=== PATIENT | male | born 1965 | race African-American/Black ===

== ENCOUNTER 2019-11-17 14:10 | Inpatient (IN) ==
[2019-11-17] MEDS ORDERED: DEXTROSE 10% 250 ML BAG IV PRN (16:17)
[2019-11-17] MEDS ORDERED: GLUCAGON 1 MG VIAL IM PRN (16:17)
[2019-11-17 17:29] LABS: Basophils % 0.3 % (0.0-0.8); Eosinophils % 0.2 % (0.00-10.9); Hematocrit 31.3 VOL% (42.0-52.0); Hemoglobin 9.5 GM/DL (14.0-18.0); Immature Granulocytes % 0.4 %; Immature Granulocytes Absolute 0.05 #; Lymphocytes # 0.6 10*3/uL (1.4-4.0); Lymphocytes % 5.3 % (21.2-54.2); Mean Corpuscular HGB Conc 30.4 GM/DL (32-36); Mean Corpuscular Volume 85.8 FL (87-102); Mean Platelet Volume 8.7 FL (9.6-12.0); Monocytes % 8.4 % (1.7-12.7); Neutrophils % 85.4 % (38.7-73.9); Platelet Count 413 T/CUMM (130-400); Red Blood Count 3.65 MC/CUMM (3.8-5.5); Red Cell Distribution Width 14.6 % (9.3-17.3); White Blood Count 11.5 T/CUMM (4-12)
[2019-11-17 17:36] LABS: Alanine Aminotransferase 25 U/L (16-61); Albumin 3.3 G/DL (3.4-5.0); Alkaline Phosphatase 547 U/L (45-117); Aspartate Amino Transferase 47 U/L (0-37); Bilirubin,Total < 0.39 MG/DL (0.2-1.0); Blood Urea Nitrogen 13 MG/DL (7-18); Calcium 9.8 MG/DL (8.5-10.1); Estimated Glom Filtration Rate 119 ML/MIN; Glucose 88 MG/DL (74-106); Osmolality,Calculated 277.4 MOS/KG (273-304); Total Protein 7.6 G/DL (6.4-8.3)
[2019-11-17 19:13] LABS: Apearance,Urine CLEAR (Clear); Bilirubin,Urine Negative (Negative); Blood, Urine Negative (Negative); Glucose,Urine (UA) Negative (Negative); Ketones,Urine Negative (Negative); Mucus,Urine Occasional /LPF (Occasional); Nitrite,Urine Negative (Negative); Protein,Urine Negative; RBC,Urine <1 /HPF (0-4); Urine Color Yellow (Yellow); Urine Specific Gravity 1.008 (1.001-1.035); Urine Urobilinogen < 2.0 EU/DL (0.2-1.0); WBC,Urine 1 /HPF (0-6)
[2019-11-17] MEDS: PANTOPRAZOLE 40 MG TABLET PO SCH (21:18)
[2019-11-18] MEDS ORDERED: DEXAMETHASONE 10 MG/1 ML VIAL IV ONE (08:59)
[2019-11-18] MEDS ORDERED: DEXAMETHASONE 4 MG TABLET PO SCH (09:00)
[2019-11-18] MEDS ORDERED: METOPROLOL SUCCINATE XL 25 MG TABLET PO SCH (09:00)
[2019-11-18] MEDS: allopurinoL 100 MG TABLET PO SCH (09:41)
[2019-11-18] MEDS: LOSARTAN 50 MG TABLET PO SCH (09:42)
[2019-11-18] MEDS: hydroCHLOROthiazide 12.5 MG CAPSULE PO SCH (09:42)
[2019-11-18] MEDS: PANTOPRAZOLE 40 MG TABLET PO SCH ×2 (09:42→22:24)
[2019-11-18] MEDS: FONDAPARINUX 2.5 MG/0.5 ML SYRINGE SUBCUT SCH (09:42)
[2019-11-18] MEDS: BICALUTAMIDE 50 MG TABLET PO SCH (09:42)
[2019-11-18] MEDS: DEXAMETHASONE 4 MG TABLET PO SCH ×2 (15:22→22:23)
[2019-11-18] MEDS: METOPROLOL SUCCINATE XL 25 MG TABLET PO SCH (22:24)
[2019-11-19 03:35] LABS: Basophils % 0.1 % (0.0-0.8); Hematocrit 30.9 VOL% (42.0-52.0); Hemoglobin 9.3 GM/DL (14.0-18.0); Immature Granulocytes % 0.8 %; Immature Granulocytes Absolute 0.08 #; Lymphocytes # 0.6 10*3/uL (1.4-4.0); Lymphocytes % 5.7 % (21.2-54.2); Mean Corpuscular HGB Conc 30.1 GM/DL (32-36); Mean Corpuscular Volume 84.9 FL (87-102); Mean Platelet Volume 8.8 FL (9.6-12.0); Monocytes % 4.3 % (1.7-12.7); Neutrophils % 89.1 % (38.7-73.9); Platelet Count 419 T/CUMM (130-400); Red Blood Count 3.64 MC/CUMM (3.8-5.5); Red Cell Distribution Width 14.6 % (9.3-17.3); White Blood Count 10.2 T/CUMM (4-12)
[2019-11-19 04:02] LABS: Albumin 2.9 G/DL (3.4-5.0); Bilirubin,Total 0.6 MG/DL (0.2-1.0); Calcium 9.6 MG/DL (8.5-10.1); Osmolality,Calculated 268.4 MOS/KG (273-304); Total Protein 7.4 G/DL (6.4-8.3)
[2019-11-19] MEDS: DEXAMETHASONE 10 MG/1 ML VIAL IV SCH ×2 (09:58→20:19)
[2019-11-19] MEDS: FONDAPARINUX 2.5 MG/0.5 ML SYRINGE SUBCUT SCH (09:58)
[2019-11-19] MEDS: PANTOPRAZOLE 40 MG TABLET PO SCH ×2 (09:59→20:19)
[2019-11-19] MEDS: METOPROLOL SUCCINATE XL 25 MG TABLET PO SCH ×2 (09:59→20:19)
[2019-11-19] MEDS: LOSARTAN 50 MG TABLET PO SCH (09:59)
[2019-11-19] MEDS: BICALUTAMIDE 50 MG TABLET PO SCH (09:59)
[2019-11-19] MEDS: hydroCHLOROthiazide 12.5 MG CAPSULE PO SCH (09:59)
[2019-11-19] MEDS: allopurinoL 100 MG TABLET PO SCH (09:59)
[2019-11-19] MEDS ORDERED: ONDANSETRON 4 MG/2 ML VIAL IV PRN (14:55)
[2019-11-19] MEDS ORDERED: chlorproMAZINE 25 MG TABLET PO PRN (16:30)
[2019-11-19] MEDS ORDERED: chlorproMAZINE INJ 50 MG in SODIUM CHLORIDE 0.9% 100 ML IV PRN (16:30)
[2019-11-19] MEDS ORDERED: ALUMINUM/MAGNES/SIMETH MAX STR 30 ML UDCUP PO PRN (16:30)
[2019-11-19] MEDS ORDERED: PROMETHAZINE INJ 25 MG in SODIUM CHLORIDE 0.9% 50 ML IV PRN (16:30)
[2019-11-19] MEDS ORDERED: LACTULOSE 20 GM/30 ML UDCUP PO PRN (16:30)
[2019-11-19] MEDS ORDERED: TEMAZEPAM 7.5 MG CAPSULE PO PRN (16:30)
[2019-11-19] MEDS ORDERED: MAGNESIUM HYDROXIDE SUSP 30 ML UDCUP PO PRN (16:30)
[2019-11-19] MEDS ORDERED: ACETAMINOPHEN 325 MG TABLET PO PRN (16:30)
[2019-11-19] MEDS ORDERED: BENZTROPINE 2 MG/2 ML AMP IV PRN (16:30)
[2019-11-19] MEDS ORDERED: LOPERAMIDE 2 MG CAPSULE PO PRN ×2 (16:30)
[2019-11-19] MEDS ORDERED: guaiFENesin 200 MG/10 ML UDCUP PO PRN (16:30)
[2019-11-19] MEDS ORDERED: MYLANTA/LIDO VISC 2:1 300 ML BOTTLE SWISH/SPIT PRN (16:30)
[2019-11-19] MEDS ORDERED: ALPRAZolam 0.25 MG TABLET PO PRN (16:30)
[2019-11-19] MEDS ORDERED: traMADol 50 MG TABLET PO PRN (16:30)
[2019-11-19] MEDS ORDERED: diphenhydrAMINE CAP 25 MG CAPSULE PO PRN (16:30)
[2019-11-19] MEDS ORDERED: chlorproMAZINE INJ 25 MG in SODIUM CHLORIDE 0.9% 100 ML IV PRN (16:30)
[2019-11-19] MEDS ORDERED: MYLANTA/LIDO VISC 2:1 300 ML BOTTLE SWISH/SWAL PRN (16:30)
[2019-11-20] MEDS: FONDAPARINUX 2.5 MG/0.5 ML SYRINGE SUBCUT SCH (08:13)
[2019-11-20] MEDS: allopurinoL 100 MG TABLET PO SCH (08:13)
[2019-11-20] MEDS: LOSARTAN 50 MG TABLET PO SCH (08:13)
[2019-11-20] MEDS: METOPROLOL SUCCINATE XL 25 MG TABLET PO SCH ×2 (08:13→20:45)
[2019-11-20] MEDS: BICALUTAMIDE 50 MG TABLET PO SCH (08:14)
[2019-11-20] MEDS: hydroCHLOROthiazide 12.5 MG CAPSULE PO SCH (08:14)
[2019-11-20] MEDS: PANTOPRAZOLE 40 MG TABLET PO SCH ×2 (08:15→20:45)
[2019-11-20] MEDS: DEXAMETHASONE 10 MG/1 ML VIAL IV SCH ×2 (08:15→20:45)
[2019-11-20 08:31] LABS: Basophils % 0.1 % (0.0-0.8); Eosinophils % 0.1 % (0.00-10.9); Hematocrit 34.1 VOL% (42.0-52.0); Hemoglobin 10.1 GM/DL (14.0-18.0); Immature Granulocytes % 0.9 %; Immature Granulocytes Absolute 0.13 #; Lymphocytes # 0.6 10*3/uL (1.4-4.0); Mean Corpuscular HGB Conc 29.6 GM/DL (32-36); Mean Corpuscular Volume 85.3 FL (87-102); Mean Platelet Volume 9.3 FL (9.6-12.0); Monocytes % 4.9 % (1.7-12.7); NRBC # 0.02 10*3/uL; Platelet Count 549 T/CUMM (130-400); Red Cell Distribution Width 14.7 % (9.3-17.3); White Blood Count 14.1 T/CUMM (4-12)
[2019-11-20 09:01] LABS: Alanine Aminotransferase 28 U/L (16-61); Albumin 3.1 G/DL (3.4-5.0); Alkaline Phosphatase 467 U/L (45-117); Aspartate Amino Transferase 30 U/L (0-37); Bilirubin,Total < 0.39 MG/DL (0.2-1.0); Blood Urea Nitrogen 28 MG/DL (7-18); Calcium 9.6 MG/DL (8.5-10.1); Estimated Glom Filtration Rate 79 ML/MIN; Glucose 156 MG/DL (74-106); Hypochromasia 1+; Lymphocytes 5 % (20-55); Microcytosis Slight; Osmolality,Calculated 276.2 MOS/KG (273-304); Platelet Estimate Adequate; Segmented Neutrophils 93 % (50-85); Total Cells Counted 100
[2019-11-21 05:36] LABS: Basophils % 0.1 % (0.0-0.8); Hematocrit 30.8 VOL% (42.0-52.0); Hemoglobin 9.2 GM/DL (14.0-18.0); Lymphocytes # 0.3 10*3/uL (1.4-4.0); Lymphocytes % 3.2 % (21.2-54.2); Mean Corpuscular HGB Conc 29.9 GM/DL (32-36); Mean Corpuscular Volume 84.4 FL (87-102); Mean Platelet Volume 9.2 FL (9.6-12.0); Monocytes % 3.4 % (1.7-12.7); Neutrophils % 92.3 % (38.7-73.9); Platelet Count 534 T/CUMM (130-400); Red Blood Count 3.65 MC/CUMM (3.8-5.5); Red Cell Distribution Width 14.6 % (9.3-17.3); White Blood Count 10.2 T/CUMM (4-12)
[2019-11-21 05:58] LABS: Albumin 2.7 G/DL (3.4-5.0); Bilirubin,Total 0.4 MG/DL (0.2-1.0); Calcium 8.9 MG/DL (8.5-10.1); Osmolality,Calculated 275.4 MOS/KG (273-304)
[2019-11-21 06:05] LABS: Lymphocytes 1 % (20-55); Platelet Estimate Adequate; Segmented Neutrophils 94 % (50-85); Total Cells Counted 100
[2019-11-21 06:06] LABS: Hypochromasia 1+; Microcytosis Slight
[2019-11-21] MEDS: METOPROLOL SUCCINATE XL 25 MG TABLET PO SCH ×2 (08:50→20:04)
[2019-11-21] MEDS: BICALUTAMIDE 50 MG TABLET PO SCH (08:50)
[2019-11-21] MEDS: FONDAPARINUX 2.5 MG/0.5 ML SYRINGE SUBCUT SCH (08:51)
[2019-11-21] MEDS: LOSARTAN 50 MG TABLET PO SCH (08:51)
[2019-11-21] MEDS: allopurinoL 100 MG TABLET PO SCH (08:51)
[2019-11-21] MEDS: PANTOPRAZOLE 40 MG TABLET PO SCH ×2 (08:52→20:04)
[2019-11-21] MEDS: DEXAMETHASONE 10 MG/1 ML VIAL IV SCH ×2 (08:52→20:04)
[2019-11-21] MEDS ORDERED: ZOLEDRONIC ACID 4 MG in PREMIX 1 EACH IV ONE (09:00)
[2019-11-21] MEDS: hydroCHLOROthiazide 12.5 MG CAPSULE PO SCH (10:43)
[2019-11-22 06:43] LABS: Basophils % 0.1 % (0.0-0.8); Hematocrit 32.7 VOL% (42.0-52.0); Hemoglobin 10.1 GM/DL (14.0-18.0); Immature Granulocytes % 1.1 %; Lymphocytes # 0.3 10*3/uL (1.4-4.0); Lymphocytes % 2.8 % (21.2-54.2); Mean Corpuscular HGB Conc 30.9 GM/DL (32-36); Mean Corpuscular Volume 81.3 FL (87-102); Mean Platelet Volume 9.4 FL (9.6-12.0); Platelet Count 564 T/CUMM (130-400); Red Blood Count 4.02 MC/CUMM (3.8-5.5); Red Cell Distribution Width 14.3 % (9.3-17.3); White Blood Count 9.4 T/CUMM (4-12)
[2019-11-22 07:32] LABS: Hypochromasia 1+; Lymphocytes 2 % (20-55); Segmented Neutrophils 94 % (50-85); Total Cells Counted 100
[2019-11-22 07:33] LABS: Microcytosis 1+; Ovalocytes Slight; Platelet Estimate Increased
[2019-11-22 08:17] VITALS: BP 148/91
[2019-11-22 08:37] LABS: Alanine Aminotransferase 34 U/L (16-61); Albumin 2.9 G/DL (3.4-5.0); Alkaline Phosphatase 693 U/L (45-117); Aspartate Amino Transferase 49 U/L (0-37); Bilirubin,Total < 0.39 MG/DL (0.2-1.0); Blood Urea Nitrogen 28 MG/DL (7-18); Calcium 9.1 MG/DL (8.5-10.1); Estimated Glom Filtration Rate 96 ML/MIN; Glucose 147 MG/DL (74-106); Osmolality,Calculated 276.2 MOS/KG (273-304); Total Protein 7.3 G/DL (6.4-8.3)
[2019-11-22] MEDS: BICALUTAMIDE 50 MG TABLET PO SCH (08:51)
[2019-11-22] MEDS: LOSARTAN 50 MG TABLET PO SCH (08:51)
[2019-11-22] MEDS: allopurinoL 100 MG TABLET PO SCH (08:52)
[2019-11-22] MEDS: METOPROLOL SUCCINATE XL 25 MG TABLET PO SCH (08:52)
[2019-11-22] MEDS: PANTOPRAZOLE 40 MG TABLET PO SCH (08:52)
[2019-11-22] MEDS: FONDAPARINUX 2.5 MG/0.5 ML SYRINGE SUBCUT SCH (08:53)
[2019-11-22] MEDS: DEXAMETHASONE 10 MG/1 ML VIAL IV SCH (08:53)
[2019-11-22] MEDS: hydroCHLOROthiazide 12.5 MG CAPSULE PO SCH (08:56)
[2019-11-22] MEDS ORDERED: LEUPROLIDE 7.5 MG SUBCUT ONE (09:00)
== END 2019-11-22 12:30 | disposition home health service (06) | DRG 723 ==
LOC: N.4E → EDBD → SUATTDRO 15:08
PROVIDERS: ADMIT Internal Medicine; ATTEND Internal Medicine

== ENCOUNTER 2020-02-11 08:22 | Inpatient (IN) ==
[2020-02-11] MEDS ORDERED: SODIUM CHLORIDE 0.9% 1,000 ML IV PRN ×3 (08:57→17:19)
[2020-02-11 09:05] LABS: Basophils % 0.2 % (0.0-0.8); Eosinophils % 0.1 % (0.00-10.9); Immature Granulocytes Absolute 3.07 #; Lymphocytes # 1.4 10*3/uL (1.4-4.0); Lymphocytes % 5.7 % (21.2-54.2); Mean Corpuscular HGB Conc 26.9 GM/DL (32-36); Mean Corpuscular Volume 99.2 FL (87-102); Mean Platelet Volume 11.1 FL (9.6-12.0); Monocytes % 3.5 % (1.7-12.7); NRBC # 3.19 10*3/uL; Neutrophils % 77.5 % (38.7-73.9); Red Cell Distribution Width 21.1 % (9.3-17.3); White Blood Count 23.7 T/CUMM (4-12)
[2020-02-11 09:13] LABS: Hematocrit 11.9 VOL% (42.0-52.0); Hemoglobin 3.2 GM/DL (14.0-18.0)
[2020-02-11 09:14] LABS: Platelet Count 18 T/CUMM (130-400)
[2020-02-11 09:34] LABS: Alanine Aminotransferase 186 U/L (16-61); Albumin 1.4 G/DL (3.4-5.0); Alkaline Phosphatase 231 U/L (45-117); Aspartate Amino Transferase 185 U/L (0-37); Blood Urea Nitrogen 52 MG/DL (7-18); Calcium 8.5 MG/DL (8.5-10.1); Estimated Glom Filtration Rate 0 ML/MIN; Glucose 154 MG/DL (74-106); Osmolality,Calculated 297.3 MOS/KG (273-304); Total Protein 4.2 G/DL (6.4-8.3); Troponin I 0.235 NG/ML (0.00-0.045)
[2020-02-11 09:39] LABS: Lymphocytes 8 % (20-55); Nucleated Red Blood Cells 8 (0-5); Segmented Neutrophils 85 % (50-85); Total Cells Counted 100
[2020-02-11 09:40] LABS: Elliptocytes Few; Ovalocytes Few; Schistocytes Few
[2020-02-11 09:41] LABS: Hypochromasia 3+; Platelet Estimate Decreased; Polychromasia Slight
[2020-02-11] MEDS ORDERED: VERAPAMIL 5 MG/2 ML VIAL ONE (09:45)
[2020-02-11] MEDS ORDERED: NITROGLYCERIN DRIP 50 MG/250 ML BOTTLE IV ONE (09:45)
[2020-02-11] MEDS ORDERED: HEPARIN/NACL 0.9% 2 UNITS/ML 500 ML IV ONE (10:00)
[2020-02-11] MEDS ORDERED: LORazepam 2 MG/1 ML VIAL ONE (10:41)
[2020-02-11 10:55] LABS: Apearance,Urine CLOUDY (Clear); Bilirubin,Urine Negative (Negative); Blood, Urine Small mg/dL (Negative); Glucose,Urine (UA) 50 mg/dL (Negative); Ketones,Urine Negative (Negative); Mucus,Urine Occasional /LPF (Occasional); Nitrite,Urine Negative (Negative); Protein,Urine Negative; RBC,Urine 1 /HPF (0-4); Squamous Epithelial Cell,Urine Occasional /HPF (0-10); Urine Color Yellow (Yellow); Urine Specific Gravity 1.015 (1.001-1.035); Urine Urobilinogen < 2.0 EU/DL (0.2-1.0); WBC,Urine 10 /HPF (0-6)
[2020-02-11 11:07] LABS: ABG Base Excess -19.8 MMOL/L (-2.5-2.5); ABG HCO3 9.4 MMOL/L (20-26); ABG PCO2 35.2 MM HG (35-48); ABG PO2 522.1 MM HG (80-95); ABG TCO2 10.4 MMOL/L (23-27)
[2020-02-11 11:09] LABS: ABG PH 7.043 (7.35-7.45)
[2020-02-11] MEDS ORDERED: LORazepam INJ 40 MG in DEXTROSE 5% 30 ML IV PRN (11:14)
[2020-02-11] MEDS ORDERED: GLUCAGON 1 MG VIAL IM PRN (11:17)
[2020-02-11] MEDS ORDERED: SODIUM BICARBONATE 50 MEQ/50 ML VIAL IV ONE ×2 (11:17→11:30)
[2020-02-11] MEDS ORDERED: DEXTROSE 50% 25 GM/50 ML VIAL IV PRN (11:17)
[2020-02-11] MEDS ORDERED: ALBUTEROL 2.5 MG/3 ML NEB RESP TX PRN (11:18)
[2020-02-11] MEDS ORDERED: PANTOPRAZOLE INJ 80 MG in SODIUM CHLORIDE 0.9% 100 ML IV ONE (11:30)
[2020-02-11] MEDS ORDERED: fentaNYL 100 MCG/2 ML VIAL IV PRN (11:36)
[2020-02-11] MEDS ORDERED: LORazepam 2 MG/1 ML VIAL IV ONE ×2 (11:40→12:00)
[2020-02-11 11:48] LABS: Basophils # 0.1 10*3/uL (0.0-0.2); Basophils % 0.7 % (0.0-0.8); Eosinophils % 0.1 % (0.00-10.9); Hematocrit 25.7 VOL% (42.0-52.0); Immature Granulocytes % 16.7 %; Immature Granulocytes Absolute 2.67 #; Lymphocytes # 0.8 10*3/uL (1.4-4.0); Lymphocytes % 5.3 % (21.2-54.2); Mean Corpuscular HGB Conc 30.4 GM/DL (32-36); Mean Corpuscular Volume 100.4 FL (87-102); Mean Platelet Volume 9.8 FL (9.6-12.0); Monocytes % 3.5 % (1.7-12.7); NRBC # 2.21 10*3/uL; Neutrophils % 73.7 % (38.7-73.9); Red Cell Distribution Width 15.3 % (9.3-17.3)
[2020-02-11 11:49] LABS: INR 1.3; PT Patient Result 13.5 SECS (9.8-11.9); Partial Thromboplastin Time 34.3 SECS (23.9-33.8)
[2020-02-11 11:50] LABS: Hemoglobin 7.8 GM/DL (14.0-18.0); Red Blood Count 2.56 MC/CUMM (3.8-5.5)
[2020-02-11 11:51] LABS: Platelet Count 55 T/CUMM (130-400)
[2020-02-11] MEDS ORDERED: OXYMETAZOLINE 0.05% NASAL SPRAY 15 ML BOTTLE BOTH NARES ONE (12:00)
[2020-02-11] MEDS ORDERED: CALCIUM GLUCONATE 2,000 MG in SODIUM CHLORIDE 0.9% 100 ML IV ONE (12:00)
[2020-02-11] MEDS: NOREPINEPHRINE 16 MG in SODIUM CHLORIDE 0.9% 234 ML IV PRN (12:00)
[2020-02-11] MEDS: SODIUM BICARB INJ 100 MEQ in DEXTROSE 5% 1,000 ML IV SCH (12:15)
[2020-02-11] MEDS: fentaNYL INJ 2,500 MCG in SODIUM CHLORIDE 0.9% 75 ML IV PRN ×3 (12:15→21:21)
[2020-02-11] MEDS: CISATRACURIUM 200 MG in SODIUM CHLORIDE 0.9% 180 ML IV PRN ×2 (12:20→18:15)
[2020-02-11 12:34] LABS: Lymphocytes 7 % (20-55); Macrocytosis Slight; Myelocytes 1 %; Nucleated Red Blood Cells 13 (0-5); Platelet Estimate Decreased; Polychromasia Slight; Segmented Neutrophils 88 % (50-85); Total Cells Counted 100
[2020-02-11 12:36] LABS: Hypochromasia 1+
[2020-02-11] MEDS: HYDROCORTISONE 100 MG VIAL IV SCH (13:30)
[2020-02-11] MEDS: PANTOPRAZOLE INJ 200 MG in SODIUM CHLORIDE 0.9% 250 ML IV SCH (13:35)
[2020-02-11 14:31] LABS: Albumin 1.8 G/DL (3.4-5.0); Bilirubin,Total 0.54 MG/DL (0.2-1.0); Calcium 6.8 MG/DL (8.5-10.1); Total Protein 4.3 G/DL (6.4-8.3)
[2020-02-11 14:32] LABS: CKMB % 1.4 %
[2020-02-11 14:33] LABS: Troponin I 0.393 NG/ML (0.00-0.045)
[2020-02-11 14:41] LABS: ABG Base Excess -10.2 MMOL/L (-2.5-2.5); ABG HCO3 16.3 MMOL/L (20-26); ABG Oxygen Saturation 96.8 % (95-100); ABG PCO2 31.9 MM HG (35-48); ABG PH 7.292 (7.35-7.45); ABG PO2 97.1 MM HG (80-95); ABG TCO2 14.2 MMOL/L (23-27)
[2020-02-11 14:55] LABS: Basophils # 0.1 10*3/uL (0.0-0.2); Basophils % 0.8 % (0.0-0.8); Eosinophils % 0.1 % (0.00-10.9); Hematocrit 30.3 VOL% (42.0-52.0); Hemoglobin 9.8 GM/DL (14.0-18.0); Immature Granulocytes % 12.6 %; Immature Granulocytes Absolute 1.57 #; Lymphocytes # 0.4 10*3/uL (1.4-4.0); Lymphocytes % 3.4 % (21.2-54.2); Mean Corpuscular HGB Conc 32.3 GM/DL (32-36); Mean Corpuscular Volume 92.1 FL (87-102); Mean Platelet Volume 8.9 FL (9.6-12.0); Monocytes % 4.5 % (1.7-12.7); NRBC # 1.57 10*3/uL; Neutrophils % 78.6 % (38.7-73.9); Platelet Count 47 T/CUMM (130-400); Red Blood Count 3.29 MC/CUMM (3.8-5.5); Red Cell Distribution Width 15.2 % (9.3-17.3); White Blood Count 12.5 T/CUMM (4-12)
[2020-02-11] MEDS ORDERED: DEXTROSE 5% IV PRN (15:25)
[2020-02-11] MEDS ORDERED: LORAZEPAM IV PRN (15:25)
[2020-02-11 15:37] LABS: Blood Urea Nitrogen 51 MG/DL (7-18); Calcium 7.4 MG/DL (8.5-10.1); Estimated Glom Filtration Rate 55 ML/MIN; Glucose 132 MG/DL (74-106); Osmolality,Calculated 301.8 MOS/KG (273-304)
[2020-02-11 17:26] LABS: Basophils # 0.1 10*3/uL (0.0-0.2); Basophils % 0.5 % (0.0-0.8); Eosinophils % 0.1 % (0.00-10.9); Hematocrit 30.7 VOL% (42.0-52.0); Hemoglobin 10.3 GM/DL (14.0-18.0); Immature Granulocytes % 8.1 %; Immature Granulocytes Absolute 0.89 #; Lymphocytes # 0.2 10*3/uL (1.4-4.0); Lymphocytes % 1.5 % (21.2-54.2); Mean Corpuscular HGB Conc 33.6 GM/DL (32-36); Mean Platelet Volume 9.7 FL (9.6-12.0); Monocytes % 3.6 % (1.7-12.7); NRBC # 1.01 10*3/uL; Neutrophils % 86.2 % (38.7-73.9); Red Blood Count 3.45 MC/CUMM (3.8-5.5); Red Cell Distribution Width 15.2 % (9.3-17.3)
[2020-02-11 17:36] LABS: Platelet Count 38 T/CUMM (130-400)
[2020-02-11 17:38] LABS: ABG Base Excess -6.6 MMOL/L (-2.5-2.5); ABG Oxygen Saturation 99.3 % (95-100); ABG PCO2 29.4 MM HG (35-48); ABG PH 7.381 (7.35-7.45); ABG TCO2 15.8 MMOL/L (23-27)
[2020-02-11 17:49] LABS: Calcium 7.2 MG/DL (8.5-10.1); Osmolality,Calculated 306.7 MOS/KG (273-304)
[2020-02-11 18:28] LABS: CKMB % 1.5 %
[2020-02-11 18:30] LABS: Troponin I 0.854 NG/ML (0.00-0.045)
[2020-02-11 19:05] LABS: Band Neutrophils 2 % (0-10); Lymphocytes 2 % (20-55); Macrocytosis 2+; Nucleated Red Blood Cells 5 (0-5); Platelet Estimate Decreased; Polychromasia Few; Segmented Neutrophils 91 % (50-85); Total Cells Counted 100
[2020-02-11 19:11] LABS: Band Neutrophils 1 % (0-10); Lymphocytes 6 % (20-55); Metamyelocytes 4 %; Myelocytes 2 %; Nucleated Red Blood Cells 10 (0-5); Segmented Neutrophils 87 % (50-85); Total Cells Counted 100
[2020-02-11 19:12] LABS: Hypochromasia 1+; Polychromasia 1+
[2020-02-11 19:13] LABS: Burr Cells 2+; Toxic Granulation 1+
[2020-02-11] MEDS: INSULIN REGULAR 100 UNIT/ML SUBCUT SCH ×3 (19:26→20:47)
[2020-02-11] MEDS: MINERAL OIL/PETROLATUM OPH OINT 3.5 GM TUBE BOTH EYES SCH ×2 (19:28→20:50)
[2020-02-11] MEDS: POTASSIUM CHLORIDE RIDER 20 MEQ in PREMIX 1 EACH IV SCH ×2 (19:35→21:16)
[2020-02-11 20:01] LABS: INR 1.3; PT Patient Result 13.7 SECS (9.8-11.9); Partial Thromboplastin Time 29.3 SECS (23.9-33.8)
[2020-02-11 23:45] LABS: ABG Base Excess -3.3 MMOL/L (-2.5-2.5); ABG HCO3 21.7 MMOL/L (20-26); ABG Oxygen Saturation 99.4 % (95-100); ABG PCO2 34.6 MM HG (35-48); ABG TCO2 18.2 MMOL/L (23-27)
[2020-02-11 23:55] LABS: Basophils % 0.3 % (0.0-0.8); Hematocrit 29.5 VOL% (42.0-52.0); Immature Granulocytes % 2.9 %; Immature Granulocytes Absolute 0.23 #; Lymphocytes # 0.2 10*3/uL (1.4-4.0); Lymphocytes % 2.2 % (21.2-54.2); Mean Corpuscular HGB Conc 33.9 GM/DL (32-36); Mean Corpuscular Volume 88.1 FL (87-102); Mean Platelet Volume 9.7 FL (9.6-12.0); Monocytes % 3.1 % (1.7-12.7); NRBC # 0.72 10*3/uL; Neutrophils % 91.5 % (38.7-73.9); Platelet Count 68 T/CUMM (130-400); Red Blood Count 3.35 MC/CUMM (3.8-5.5); Red Cell Distribution Width 15.2 % (9.3-17.3); White Blood Count 7.8 T/CUMM (4-12)
[2020-02-12 00:07] LABS: INR 1.4; PT Patient Result 14.6 SECS (9.8-11.9); Partial Thromboplastin Time 28.3 SECS (23.9-33.8)
[2020-02-12 00:19] LABS: Calcium 6.8 MG/DL (8.5-10.1); Osmolality,Calculated 312.4 MOS/KG (273-304)
[2020-02-12] MEDS: SODIUM BICARB INJ 100 MEQ in DEXTROSE 5% 1,000 ML IV SCH ×2 (00:30→10:33)
[2020-02-12 00:32] LABS: Apearance,Urine Slightly Hazy (Clear); Bacteria,Urine Occasional /HPF (Few); Bilirubin,Urine Negative (Negative); Blood, Urine Large mg/dL (Negative); Glucose,Urine (UA) 150 mg/dL (Negative); Ketones,Urine Negative (Negative); Mucus,Urine Occasional /LPF (Occasional); Nitrite,Urine Negative (Negative); Protein,Urine 100 MG/DL; RBC,Urine 267 /HPF (0-4); Squamous Epithelial Cell,Urine Occasional /HPF (0-10); Urine Color Yellow (Yellow); Urine Specific Gravity 1.013 (1.001-1.035); Urine Urobilinogen < 2.0 EU/DL (0.2-1.0); WBC,Urine 7 /HPF (0-6)
[2020-02-12 00:43] LABS: CKMB % 1.6 %
[2020-02-12 00:44] LABS: Troponin I 1.01 NG/ML (0.00-0.045)
[2020-02-12] MEDS: HYDROCORTISONE 100 MG VIAL IV SCH (00:55)
[2020-02-12] MEDS: INSULIN REGULAR 100 UNIT/ML SUBCUT SCH ×7 (00:57→23:45)
[2020-02-12] MEDS: POTASSIUM CHLORIDE RIDER 100 ML IV PRN ×2 (01:30→06:36)
[2020-02-12 02:13] LABS: Band Neutrophils 4 % (0-10); Lymphocytes 3 % (20-55); Nucleated Red Blood Cells 5 (0-5); Segmented Neutrophils 83 % (50-85); Total Cells Counted 100
[2020-02-12 02:14] LABS: Anisocytosis 1+; Platelet Estimate Decreased
[2020-02-12] MEDS: fentaNYL INJ 2,500 MCG in SODIUM CHLORIDE 0.9% 75 ML IV PRN ×3 (02:19→17:00)
[2020-02-12 04:44] LABS: ABG Base Excess -0.1 MMOL/L (-2.5-2.5); ABG HCO3 24.3 MMOL/L (20-26); ABG Oxygen Saturation 99.2 % (95-100); ABG PCO2 34.8 MM HG (35-48); ABG TCO2 21.5 MMOL/L (23-27)
[2020-02-12 05:03] LABS: Basophils % 0.3 % (0.0-0.8); Hematocrit 28.4 VOL% (42.0-52.0); Hemoglobin 9.8 GM/DL (14.0-18.0); Immature Granulocytes % 1.6 %; Lymphocytes # 0.1 10*3/uL (1.4-4.0); Lymphocytes % 0.9 % (21.2-54.2); Mean Corpuscular HGB Conc 34.5 GM/DL (32-36); Mean Corpuscular Volume 86.1 FL (87-102); Mean Platelet Volume 9.5 FL (9.6-12.0); Monocytes % 3.6 % (1.7-12.7); NRBC # 0.51 10*3/uL; Neutrophils % 93.6 % (38.7-73.9); Platelet Count 99 T/CUMM (130-400); Red Cell Distribution Width 15.3 % (9.3-17.3); White Blood Count 6.3 T/CUMM (4-12)
[2020-02-12 05:36] LABS: Osmolality,Calculated 312.3 MOS/KG (273-304)
[2020-02-12 05:38] LABS: Band Neutrophils 8 % (0-10); Lymphocytes 4 % (20-55); Nucleated Red Blood Cells 7 (0-5); Platelet Estimate Decreased; Segmented Neutrophils 85 % (50-85); Total Cells Counted 100
[2020-02-12 05:46] LABS: INR 1.4; Partial Thromboplastin Time 27.8 SECS (23.9-33.8)
[2020-02-12 06:03] LABS: CKMB % 1.7 %; Troponin I 1.05 NG/ML (0.00-0.045)
[2020-02-12 08:00] LABS: ABG Base Excess 0.9 MMOL/L (-2.5-2.5); ABG HCO3 25.3 MMOL/L (20-26); ABG Oxygen Saturation 98.6 % (95-100); ABG PCO2 34.1 MM HG (35-48); ABG PH 7.463 (7.35-7.45); ABG TCO2 22.2 MMOL/L (23-27); Glucose Heart Surgery 160 MG/DL (74-106); Hematocrit Heart Surgery 29.4 PERCENT (42-52); Hemoglobin Heart Surgery 9.5 G/DL (14.0-18.0)
[2020-02-12] MEDS ORDERED: MANNITOL 100 GM/500 ML BAG IV ONE (08:29)
[2020-02-12] MEDS ORDERED: MANNITOL 12.5 GM/50 ML VIAL IV SCH (08:30)
[2020-02-12] MEDS ORDERED: MANNITOL 25 GM in PREMIX 1 EACH IV SCH ×2 (09:00)
[2020-02-12] MEDS: DEXAMETHASONE 4 MG/1 ML VIAL IV SCH ×3 (09:23→20:23)
[2020-02-12] MEDS: MINERAL OIL/PETROLATUM OPH OINT 3.5 GM TUBE BOTH EYES SCH ×3 (09:24→20:51)
[2020-02-12] MEDS: MANNITOL IV SCH ×3 (10:23→20:45)
[2020-02-12 11:48] LABS: Basophils % 0.3 % (0.0-0.8); Hematocrit 29.5 VOL% (42.0-52.0); Hemoglobin 10.2 GM/DL (14.0-18.0); Immature Granulocytes Absolute 0.08 #; Lymphocytes # 0.1 10*3/uL (1.4-4.0); Lymphocytes % 1.3 % (21.2-54.2); Mean Corpuscular HGB Conc 34.6 GM/DL (32-36); Mean Corpuscular Volume 84.8 FL (87-102); Mean Platelet Volume 9.4 FL (9.6-12.0); Monocytes % 4.7 % (1.7-12.7); NRBC # 0.46 10*3/uL; Neutrophils % 92.7 % (38.7-73.9); Platelet Count 101 T/CUMM (130-400); Red Blood Count 3.48 MC/CUMM (3.8-5.5); Red Cell Distribution Width 15.4 % (9.3-17.3); White Blood Count 7.7 T/CUMM (4-12)
[2020-02-12 12:08] LABS: Band Neutrophils 11 % (0-10); Calcium 7.1 MG/DL (8.5-10.1); Lymphocytes 1 % (20-55); Nucleated Red Blood Cells 7 (0-5); Osmolality,Calculated 307.6 MOS/KG (273-304); Platelet Estimate Decreased; Segmented Neutrophils 83 % (50-85); Total Cells Counted 100
[2020-02-12 12:09] LABS: Hypochromasia Slight
[2020-02-12 12:21] LABS: ABG Base Excess 1.7 MMOL/L (-2.5-2.5); ABG Oxygen Saturation 98.5 % (95-100); ABG PCO2 33.3 MM HG (35-48); ABG TCO2 22.3 MMOL/L (23-27)
[2020-02-12 12:25] LABS: CKMB % 1.7 %
[2020-02-12 12:29] LABS: Troponin I 0.888 NG/ML (0.00-0.045)
[2020-02-12] MEDS: DEXTROSE 5% 1,000 ML IV SCH ×2 (12:30→22:31)
[2020-02-12] MEDS: PANTOPRAZOLE INJ 200 MG in SODIUM CHLORIDE 0.9% 250 ML IV SCH (13:16)
[2020-02-12 14:19] LABS: INR 1.5; PT Patient Result 15.7 SECS (9.8-11.9); Partial Thromboplastin Time 28.4 SECS (23.9-33.8)
[2020-02-12] MEDS: CISATRACURIUM 200 MG in SODIUM CHLORIDE 0.9% 180 ML IV PRN (14:55)
[2020-02-12 17:27] LABS: ABG Base Excess 1.2 MMOL/L (-2.5-2.5); ABG HCO3 25.5 MMOL/L (20-26); ABG Oxygen Saturation 98.9 % (95-100); ABG PCO2 31.8 MM HG (35-48); ABG PH 7.486 (7.35-7.45); ABG TCO2 21.5 MMOL/L (23-27)
[2020-02-12 17:30] LABS: Basophils % 0.2 % (0.0-0.8); Hematocrit 30.9 VOL% (42.0-52.0); Hemoglobin 10.8 GM/DL (14.0-18.0); Immature Granulocytes % 1.1 %; Immature Granulocytes Absolute 0.09 #; Mean Corpuscular Volume 84.4 FL (87-102); Mean Platelet Volume 9.4 FL (9.6-12.0); Monocytes % 4.3 % (1.7-12.7); NRBC # 0.56 10*3/uL; Neutrophils % 94.4 % (38.7-73.9); Platelet Count 100 T/CUMM (130-400); Red Blood Count 3.66 MC/CUMM (3.8-5.5); Red Cell Distribution Width 15.5 % (9.3-17.3); White Blood Count 8.6 T/CUMM (4-12)
[2020-02-12 17:42] LABS: INR 1.6; PT Patient Result 16.5 SECS (9.8-11.9); Partial Thromboplastin Time 28.5 SECS (23.9-33.8)
[2020-02-12 18:20] LABS: Calcium 7.2 MG/DL (8.5-10.1); Osmolality,Calculated 308.6 MOS/KG (273-304)
[2020-02-12 19:55] LABS: Band Neutrophils 19 % (0-10); Lymphocytes 1 % (20-55); Myelocytes 2 %; Nucleated Red Blood Cells 7 (0-5); Platelet Estimate Decreased; Polychromasia 1+; Segmented Neutrophils 72 % (50-85); Total Cells Counted 100
[2020-02-12 19:56] LABS: Anisocytosis Slight
[2020-02-12] MEDS: NOREPINEPHRINE 16 MG in SODIUM CHLORIDE 0.9% 234 ML IV PRN (22:15)
[2020-02-12 22:56] LABS: ABG Base Excess 0.9 MMOL/L (-2.5-2.5); ABG HCO3 25.2 MMOL/L (20-26); ABG Oxygen Saturation 98.7 % (95-100); ABG PCO2 31.9 MM HG (35-48); ABG PH 7.481 (7.35-7.45); ABG TCO2 21.4 MMOL/L (23-27)
[2020-02-12 23:01] LABS: Basophils % 0.3 % (0.0-0.8); Hematocrit 30.9 VOL% (42.0-52.0); Hemoglobin 10.7 GM/DL (14.0-18.0); Immature Granulocytes % 1.3 %; Immature Granulocytes Absolute 0.12 #; Mean Corpuscular HGB Conc 34.6 GM/DL (32-36); Mean Corpuscular Volume 84.7 FL (87-102); Mean Platelet Volume 9.9 FL (9.6-12.0); Monocytes % 3.5 % (1.7-12.7); NRBC # 0.59 10*3/uL; Neutrophils % 94.9 % (38.7-73.9); Platelet Count 86 T/CUMM (130-400); Red Blood Count 3.65 MC/CUMM (3.8-5.5); Red Cell Distribution Width 15.8 % (9.3-17.3)
[2020-02-12 23:08] LABS: Calcium 7.4 MG/DL (8.5-10.1); Osmolality,Calculated 307.6 MOS/KG (273-304)
[2020-02-12 23:16] LABS: INR 1.6; PT Patient Result 16.5 SECS (9.8-11.9); Partial Thromboplastin Time 28.7 SECS (23.9-33.8)
[2020-02-13 00:29] LABS: Band Neutrophils 10 % (0-10); Lymphocytes 1 % (20-55); Metamyelocytes 6 %; Nucleated Red Blood Cells 13 (0-5); Segmented Neutrophils 80 % (50-85); Total Cells Counted 100
[2020-02-13 00:30] LABS: Hypochromasia Slight; Platelet Estimate Decreased; Polychromasia 2+
[2020-02-13 01:34] LABS: ABG Base Excess 0.4 MMOL/L (-2.5-2.5); ABG HCO3 24.8 MMOL/L (20-26); ABG Oxygen Saturation 99.3 % (95-100); ABG PCO2 32.6 MM HG (35-48); ABG PH 7.467 (7.35-7.45); ABG TCO2 21.1 MMOL/L (23-27)
[2020-02-13 01:43] LABS: Basophils % 0.4 % (0.0-0.8); Eosinophils % 0.2 % (0.00-10.9); Hematocrit 31.1 VOL% (42.0-52.0); Hemoglobin 10.8 GM/DL (14.0-18.0); Immature Granulocytes % 1.6 %; Immature Granulocytes Absolute 0.16 #; Mean Corpuscular HGB Conc 34.7 GM/DL (32-36); Mean Corpuscular Volume 85.2 FL (87-102); Mean Platelet Volume 9.7 FL (9.6-12.0); Monocytes % 3.5 % (1.7-12.7); NRBC # 0.66 10*3/uL; Neutrophils % 94.3 % (38.7-73.9); Platelet Count 87 T/CUMM (130-400); Red Blood Count 3.65 MC/CUMM (3.8-5.5); Red Cell Distribution Width 15.8 % (9.3-17.3); White Blood Count 10.3 T/CUMM (4-12)
[2020-02-13 01:52] LABS: CKMB % 1.8 %
[2020-02-13 01:56] LABS: INR 1.6; PT Patient Result 16.5 SECS (9.8-11.9); Partial Thromboplastin Time 28.7 SECS (23.9-33.8); Troponin I 0.641 NG/ML (0.00-0.045)
[2020-02-13 02:05] LABS: Albumin 1.9 G/DL (3.4-5.0); Bilirubin,Total 1.7 MG/DL (0.2-1.0); Calcium 7.4 MG/DL (8.5-10.1); Osmolality,Calculated 307.6 MOS/KG (273-304); Total Protein 4.5 G/DL (6.4-8.3)
[2020-02-13] MEDS: DEXAMETHASONE 4 MG/1 ML VIAL IV SCH ×4 (02:12→20:28)
[2020-02-13] MEDS: MANNITOL IV SCH ×4 (02:25→20:28)
[2020-02-13 03:27] LABS: Anisocytosis 1+; Band Neutrophils 34 % (0-10); Eosinophils 1 % (0-10); Lymphocytes 1 % (20-55); Macrocytosis 1+; Metamyelocytes 8 %; Myelocytes 3 %; Nucleated Red Blood Cells 10 (0-5); Platelet Estimate Decreased; Polychromasia Few; Segmented Neutrophils 50 % (50-85); Total Cells Counted 100
[2020-02-13] MEDS: fentaNYL INJ 2,500 MCG in SODIUM CHLORIDE 0.9% 75 ML IV PRN (03:49)
[2020-02-13 05:08] LABS: ABG Base Excess 0.3 MMOL/L (-2.5-2.5); ABG HCO3 24.7 MMOL/L (20-26); ABG Oxygen Saturation 99.3 % (95-100); ABG PH 7.461 (7.35-7.45); ABG TCO2 21.1 MMOL/L (23-27)
[2020-02-13] MEDS: INSULIN REGULAR 100 UNIT/ML SUBCUT SCH ×5 (05:10→20:56)
[2020-02-13 05:11] LABS: Basophils % 0.4 % (0.0-0.8); Hematocrit 31.2 VOL% (42.0-52.0); Hemoglobin 10.8 GM/DL (14.0-18.0); Immature Granulocytes % 1.3 %; Immature Granulocytes Absolute 0.15 #; Mean Corpuscular HGB Conc 34.6 GM/DL (32-36); Mean Platelet Volume 10.6 FL (9.6-12.0); Monocytes % 4.9 % (1.7-12.7); NRBC # 0.71 10*3/uL; Neutrophils % 93.4 % (38.7-73.9); Red Blood Count 3.67 MC/CUMM (3.8-5.5); Red Cell Distribution Width 15.9 % (9.3-17.3); White Blood Count 11.4 T/CUMM (4-12)
[2020-02-13 05:12] LABS: Platelet Count 84 T/CUMM (130-400)
[2020-02-13 05:31] LABS: Band Neutrophils 10 % (0-10); Nucleated Red Blood Cells 4 (0-5); Segmented Neutrophils 84 % (50-85); Total Cells Counted 100
[2020-02-13 05:32] LABS: Hypochromasia 1+; Macrocytosis Slight; Platelet Estimate Decreased
[2020-02-13 05:33] LABS: Polychromasia Slight
[2020-02-13 05:42] LABS: INR 1.5; PT Patient Result 15.3 SECS (9.8-11.9); Partial Thromboplastin Time 27.9 SECS (23.9-33.8)
[2020-02-13 06:08] LABS: Calcium 7.4 MG/DL (8.5-10.1); Osmolality,Calculated 304.7 MOS/KG (273-304)
[2020-02-13] MEDS: DEXTROSE 5% 1,000 ML IV SCH ×3 (08:35→22:43)
[2020-02-13] MEDS: MINERAL OIL/PETROLATUM OPH OINT 3.5 GM TUBE BOTH EYES SCH ×3 (08:42→20:31)
[2020-02-13 11:16] LABS: Basophils % 0.3 % (0.0-0.8); Eosinophils % 0.2 % (0.00-10.9); Hematocrit 32.5 VOL% (42.0-52.0); Hemoglobin 11.1 GM/DL (14.0-18.0); Immature Granulocytes % 1.1 %; Immature Granulocytes Absolute 0.14 #; Mean Corpuscular HGB Conc 34.2 GM/DL (32-36); Mean Platelet Volume 9.7 FL (9.6-12.0); Monocytes % 5.9 % (1.7-12.7); NRBC # 0.68 10*3/uL; Neutrophils % 92.5 % (38.7-73.9); Platelet Count 79 T/CUMM (130-400); Red Blood Count 3.78 MC/CUMM (3.8-5.5); Red Cell Distribution Width 16.1 % (9.3-17.3); White Blood Count 12.6 T/CUMM (4-12)
[2020-02-13 11:35] LABS: Band Neutrophils 6 % (0-10); Hypochromasia 1+; Metamyelocytes 1 %; Nucleated Red Blood Cells 2 (0-5); Segmented Neutrophils 90 % (50-85); Total Cells Counted 100
[2020-02-13 11:36] LABS: Anisocytosis 1+; Ovalocytes Slight
[2020-02-13 11:38] LABS: Platelet Estimate Decreased; Polychromasia Slight
[2020-02-13 13:35] LABS: Calcium 7.9 MG/DL (8.5-10.1); Osmolality,Calculated 302.8 MOS/KG (273-304)
[2020-02-13] MEDS: PANTOPRAZOLE INJ 200 MG in SODIUM CHLORIDE 0.9% 250 ML IV SCH (13:59)
[2020-02-13] MEDS: NOREPINEPHRINE 16 MG in SODIUM CHLORIDE 0.9% 234 ML IV PRN (18:25)
[2020-02-13 23:01] LABS: INR 1.3; PT Patient Result 13.9 SECS (9.8-11.9); Partial Thromboplastin Time 28.5 SECS (23.9-33.8)
[2020-02-14] MEDS: MORPHINE 4 MG/1 ML VIAL IV PRN ×3 (00:10→13:17)
[2020-02-14] MEDS ORDERED: LORazepam 2 MG/1 ML VIAL IV ONE (00:21)
[2020-02-14] MEDS ORDERED: LORazepam 2 MG/1 ML VIAL ONE (00:25)
[2020-02-14 01:01] LABS: ABG Base Excess 0.6 MMOL/L (-2.5-2.5); ABG HCO3 23.8 MMOL/L (20-26); ABG Oxygen Saturation 96.8 % (95-100); ABG PH 7.476 (7.35-7.45); ABG PO2 103.4 MM HG (80-95); ABG TCO2 24.8 MMOL/L (23-27)
[2020-02-14 01:07] LABS: Basophils % 0.2 % (0.0-0.8); Hematocrit 29.4 VOL% (42.0-52.0); Hemoglobin 9.8 GM/DL (14.0-18.0); Immature Granulocytes % 0.5 %; Immature Granulocytes Absolute 0.04 #; Mean Corpuscular HGB Conc 33.3 GM/DL (32-36); Mean Platelet Volume 9.8 FL (9.6-12.0); NRBC # 0.72 10*3/uL; Neutrophils % 93.3 % (38.7-73.9); Platelet Count 41 T/CUMM (130-400); Red Blood Count 3.34 MC/CUMM (3.8-5.5); Red Cell Distribution Width 16.2 % (9.3-17.3); White Blood Count 8.6 T/CUMM (4-12)
[2020-02-14 01:36] LABS: Albumin 1.8 G/DL (3.4-5.0); Bilirubin,Total 1.9 MG/DL (0.2-1.0); Calcium 8.3 MG/DL (8.5-10.1); Osmolality,Calculated 301.8 MOS/KG (273-304)
[2020-02-14] MEDS: INSULIN REGULAR 100 UNIT/ML SUBCUT SCH ×5 (01:43→17:54)
[2020-02-14] MEDS ORDERED: SODIUM CHLORIDE 0.9% 1,000 ML IV PRN (01:49)
[2020-02-14 01:56] LABS: Band Neutrophils 6 % (0-10); Lymphocytes 3 % (20-55); Nucleated Red Blood Cells 4 (0-5); Platelet Estimate Decreased; Segmented Neutrophils 86 % (50-85); Total Cells Counted 100
[2020-02-14 01:57] LABS: Anisocytosis Slight; Hypochromasia Slight; Microcytosis 1+; Polychromasia Slight
[2020-02-14] MEDS ORDERED: METOPROLOL TARTRATE 5 MG/5 ML VIAL IV ONE (02:00)
[2020-02-14] MEDS ORDERED: METOPROLOL TARTRATE 5 MG/5 ML VIAL IV PRN (02:01)
[2020-02-14] MEDS: DEXAMETHASONE 4 MG/1 ML VIAL IV SCH ×3 (02:46→13:31)
[2020-02-14] MEDS: MANNITOL IV SCH ×3 (02:46→15:54)
[2020-02-14] MEDS: DEXTROSE 5% 1,000 ML IV SCH ×3 (05:01→15:55)
[2020-02-14] MEDS: POTASSIUM CHLORIDE RIDER 100 ML IV PRN (05:17)
[2020-02-14] MEDS: MINERAL OIL/PETROLATUM OPH OINT 3.5 GM TUBE BOTH EYES SCH ×2 (08:42→15:54)
[2020-02-14] MEDS ORDERED: DIGOXIN 0.5 MG/2 ML AMP IV ONE (13:08)
[2020-02-14 16:57] VITALS: BP 82/36
[2020-02-14] MEDS: NOREPINEPHRINE 16 MG in SODIUM CHLORIDE 0.9% 234 ML IV PRN (17:55)
[2020-02-14] MEDS ORDERED: PANTOPRAZOLE 40 MG VIAL IV SCH (21:00)
== END 2020-02-14 20:31 | disposition expired | DRG 150 ==
LOC: EDBD → EDUNIT# → N.ED 08:22 → N.ICU 08:42 → SUATTDRO 09:23 → N.EDINP 09:23 → N.ICU 10:14
PROVIDERS: ADMIT Internal Medicine Cardiovascular Disease; ATTEND Internal Medicine
PROC: CLCCHCL (ICD-10-PCS; 2020-02-11 09:15)